=== PATIENT | female | born 1945 | race Caucasian/White ===

== ENCOUNTER → 2018-05-10 09:39 | Outpatient (CLI) | payer MEDICARE, OTHER, SELFPAY ==
--- NOTE | 2018-05-10 | DI.RAD.S_ITS ---
PROCEDURE: XR KNEE LT 3V INDICATIONS: OSTEOARTHRITIS TECHNIQUE: 3 views of the knee were acquired. COMPARISON: None. FINDINGS: Bones: No fractures or dislocations. No suspicious bony lesions. The marginal spurring in all 3 compartments. Marked narrowing of the medial joint compartment with mild varus angulation and lateral tibial subluxation on weightbearing images. Soft tissues: Mild joint effusion. No suspicious soft tissue calcifications. IMPRESSION: 1. Mild joint effusion and tricompartmental osteoarthritis, most marked medially. Dictated by: Jordon Sales M.D. on 05/10/2018 at 10:26 Approved by: Jordon Sales M.D. on 05/10/2018 at 10:28
== END ==
PROVIDERS: PCP Internal Medicine; Visit Provider Internal Medicine
DX: M17.12 Unilateral primary osteoarthritis, left knee (principal); M25.462 Effusion, left knee; M85.852 Other specified disorders of bone density and structure, left thigh
CPT/HCPCS: 73562; 77080

== ENCOUNTER → 2018-08-21 11:02 | Outpatient (CLI) | payer MEDICARE, OTHER, SELFPAY ==
--- NOTE | 2018-08-21 | DI.RAD.S_ITS ---
PROCEDURE: XR HIP W PEL IF DONE RT 2V INDICATIONS: Pain in right knee/osteoarthritis TECHNIQUE: AP pelvis with lateral view(s) of the right hip(s). COMPARISON: None. FINDINGS: Bones: No fractures or dislocations. Asymmetric hip joint osteoarthritis present, mild to moderate on the left and moderate on the right Pelvic ring appears intact. No suspicious bony lesions. Soft tissues: The visualized bowel gas pattern is normal. No suspicious soft tissue calcifications. IMPRESSION: Asymmetric right greater than left hip joint osteoarthritis but no trauma found. Dictated by: Catalino Person M.D. on 08/21/2018 at 12:08 Approved by: Catalino Person M.D. on 08/21/2018 at 12:09
--- NOTE | 2018-08-21 | DI.RAD.S_ITS ---
PROCEDURE: XR KNEE RT 3V INDICATIONS: Pain in right knee/osteoarthritis TECHNIQUE: 3 views of the knee were acquired. COMPARISON: [facility], CR, XR KNEE LT 3V, 05/10/2018, 9:48. FINDINGS: Bones: No fractures or dislocations. There is moderate thinning of the joints width at the medial compartment, and mild such thinning of the lateral compartment. There is mild to moderate thinning of the joint space at the medial facet of the patellofemoral joint. No suspicious bony lesions. Soft tissues: No joint effusion. No suspicious soft tissue calcifications. IMPRESSION: No trauma found. Tricompartmental degenerative osteoarthritic joint space thinning is present, most pronounced at the medial compartment of the right knee. Dictated by: Catalino Person M.D. on 08/21/2018 at 12:09 Approved by: Catalino Person M.D. on 08/21/2018 at 12:10
== END ==
PROVIDERS: Family Provider Orthopaedic Surgery; PCP Internal Medicine; Visit Provider Internal Medicine
DX: M25.561 Pain in right knee (principal); M16.0 Bilateral primary osteoarthritis of hip; M17.11 Unilateral primary osteoarthritis, right knee
CPT/HCPCS: 73502; 73562

== ENCOUNTER → 2022-08-11 11:06 | Outpatient (CLI) | payer MEDICARE, OTHER, SELFPAY ==
--- NOTE | 2022-08-11 11:08 | DI.RAD.S_ITS ---
PROCEDURE: XR CHEST 2V INDICATIONS: history of aortic aneurysm TECHNIQUE: 2 views of the chest were acquired. COMPARISON: None. FINDINGS: Surgical changes and devices: None. Lungs and pleura: Lungs are clear. No pleural effusions or pneumothorax. Mediastinum: There is ectasia versus aneurysm of the ascending thoracic aorta and the proximal most portion of the descending thoracic aorta just beyond the arch. Normal heart size. Bones and chest wall: No suspicious bony abnormalities. Soft tissues appear unremarkable. IMPRESSION: Suspected ectasias or potentially aneurysm of the ascending thoracic aorta and potentially the aortic arch as well. No prior studies are available for comparison. If there is a known diagnosis of thoracic aortic aneurysm then CT angiography of the chest (potentially to include the abdomen and pelvis) would be the next best imaging study. Dictated by: Ramon Valladares M.D. on 08/11/2022 at 15:39 Approved by: Ramon Valladares M.D. on 08/11/2022 at 15:43
--- NOTE | 2022-08-11 11:08 | DI.RAD.S_ITS ---
PROCEDURE: XR PELVIS 1-2V INDICATIONS: pelvic fracture, right SI joint pain TECHNIQUE: Single AP view(s) of the pelvis acquired. COMPARISON: [facility], CR, XR HIP W PEL IF DONE RT 2V, 08/21/2018, 10:46. FINDINGS: Left superior and inferior parasymphyseal pubic ramus or fractures are redemonstrated. Alignment is not significantly changed. Bones otherwise intact. Moderate right greater than left hip osteoarthritis. IMPRESSION: Left superior and inferior pubic ramus fractures are unchanged in alignment. Dictated by: Ramon Valladares M.D. on 08/11/2022 at 16:22 Approved by: Ramon Valladares M.D. on 08/11/2022 at 16:24
[2022-08-11 13:36] LABS: Hemoglobin 12.4 g/dL (12.0-16.0); Mean Corpuscular HGB Conc 34.4 % (30-36); Mean Corpuscular Hemoglobin 30.8 PG (26-34); Mean Corpuscular Volume 89.3 fL (80-100); Platelet Count 323 X10^3/uL (150-400); Red Blood Cell Count 4.03 X10^6/uL (4.0-5.2); Red Cell Distribution Width 12.7 % (11.6-14.8); White Blood Cell Count 7.1 X10^3/uL (4.5-11.0)
[2022-08-11 13:48] LABS: Alanine Aminotransferase 12 IU/L (<35); Albumin Globulin Ratio 1.3 (1.0-2.8); Alkaline Phosphatase 98 U/L (38-126); Aspartate Aminotransferase 21 IU/L (14-36); BUN Creatinine Ratio 29.7 (6-22); Bilirubin Total 0.2 mg/dL (0.2-1.3); Blood Urea Nitrogen 19 mg/dL (7-17); Calcium 9.4 mg/dL (8.4-10.2); Carbon Dioxide 25 mmol/L (22-32); Chloride 99 mmol/L (98-107); Cholesterol 262 mg/dL (140-199); Estimated Glomerular Filt Rate > 60 mL/min (>60); Glucose 86 mg/dL (80-110); HDL Cholesterol 62 mg/dL (40-60); HEMOLYSIS < 15 (0-50); LDL Cholesterol Calculated 169 mg/dL (<100); Potassium 4.7 mmol/L (3.4-5.1); Sodium 134 mmol/L (137-145); Triglycerides 155 mg/dL (35-150)
[2022-08-11 14:18] LABS: TSH w/ Reflex to FT4 0.92 uIU/mL (0.47-4.68)
[2022-08-11 17:24] LABS: Vitamin D 25 Hydroxy (D3) 80.3 ng/mL (30.0-100.0)
== END ==
PROVIDERS: Family Provider Orthopaedic Surgery; PCP Internal Medicine; Referring Provider Internal Medicine; Visit Provider Internal Medicine
DX: M16.0 Bilateral primary osteoarthritis of hip (principal); E78.2 Mixed hyperlipidemia; M85.80 Other specified disorders of bone density and structure, unspecified site; I71.9 Aortic aneurysm of unspecified site, without rupture; Z87.81 Personal history of (healed) traumatic fracture
CPT/HCPCS: 36415; 71046; 72170; 80053; 80061; 82306; 84443; 85027

== ENCOUNTER → 2022-08-31 12:51 | Outpatient (CLI) | payer MEDICARE, OTHER, SELFPAY | PROVIDERS: Family Provider Orthopaedic Surgery; PCP Internal Medicine; Referring Provider Internal Medicine; Visit Provider Internal Medicine | DX: Z78.0 Asymptomatic menopausal state (principal); Z13.820 Encounter for screening for osteoporosis; M81.0 Age-related osteoporosis without current pathological fracture; Z90.710 Acquired absence of both cervix and uterus | CPT/HCPCS: 77080 ==

== ENCOUNTER → 2022-09-06 12:29 | Outpatient (CLI) | payer MEDICARE, OTHER, SELFPAY ==
--- NOTE | 2022-09-06 12:30 | DI.CT.S_ITS ---
PROCEDURE: CT ANGIO CHEST INDICATIONS: aortic aneurysm TECHNIQUE: After the administration of intravenous contrast, 2.5 mm thick sections acquired from the lung apices to the posterior lung bases. Maximum intensity projection (MIP) oblique sagittal reformats were then acquired parallel to the aortic arch. For radiation dose reduction, the following was used: automated exposure control. COMPARISON: None. FINDINGS: Image quality: Excellent. Aorta: Aorta and great vessels are normal in size. No aneurysmal aortic dilatation. No mural hematomas. No wall thickening or periaortic fat stranding. Mediastinum: No hematomas. Heart size is normal. No pericardial effusion. No mediastinal or hilar adenopathy by size criteria. Central pulmonary arteries are normal in size. Esophagus is normal in caliber. No hiatal hernia. Lungs and pleura: No acute airspace opacities. No pleural effusions or pneumothorax. Central and peripheral airways are patent and normal in caliber. Bones and chest wall: No axillary adenopathy by size criteria. The right thyroid lobe has a heterogeneous appearance. The left thyroid lobe is unremarkable. No suspicious bony lesions. No vertebral body compression fractures. Moderate degenerative changes are present throughout the thoracic spine. Abdomen: Visualized upper abdominal solid organs and bowel loops appear normal. IMPRESSION: 1. No aortic aneurysmal dilatation, mural hematomas, or wall thickening. Dictated by: Cate Gibson M.D. on 09/06/2022 at 15:23 Approved by: Cate Gibson M.D. on 09/06/2022 at 15:39
== END ==
PROVIDERS: Family Provider Orthopaedic Surgery; PCP Internal Medicine; Referring Provider Internal Medicine; Visit Provider Internal Medicine
DX: I71.9 Aortic aneurysm of unspecified site, without rupture (principal)
CPT/HCPCS: 71275; Q9967

== ENCOUNTER → 2023-06-06 12:52 | Outpatient (CLI) | payer MEDICARE, OTHER, SELFPAY ==
--- NOTE | 2023-06-06 12:53 | DI.RAD.S_ITS ---
PROCEDURE: XR HIP W PEL IF DONE RT 2V INDICATIONS: right hip pain TECHNIQUE: AP pelvis with lateral view(s) of the left hip(s). COMPARISON: [facility], CR, XR PELVIS 1-2V, 08/11/2022, 11:13. [facility], CR, XR HIP W PEL IF DONE RT 2V, 08/21/2018, 10:46. FINDINGS: Remote healed fracture of the left superior and inferior ramus. Bones: No acute fractures or dislocations. Degenerative changes of the right hip consistent with osteoarthritis. Pelvic ring appears intact. No suspicious bony lesions. Soft tissues: The visualized bowel gas pattern is normal. No suspicious soft tissue calcifications. IMPRESSION: 1. Degenerative changes of the right hip consistent with osteoarthritis. 2. Healed fractures of the left superior and inferior ramus. Dictated by: Stanley Tuttle M.D. on 06/06/2023 at 13:37 Approved by: Stanley Tuttle M.D. on 06/06/2023 at 13:40
== END ==
PROVIDERS: Family Provider Orthopaedic Surgery; PCP Internal Medicine; Referring Provider Internal Medicine; Visit Provider Internal Medicine
DX: M15.9 Polyosteoarthritis, unspecified (principal)
CPT/HCPCS: 73502

== ENCOUNTER → 2023-10-04 11:11 | Outpatient (CLI) | payer MEDICARE, OTHER, SELFPAY ==
--- NOTE | 2023-10-04 11:14 | DI.RAD.S_ITS ---
PROCEDURE: XR CERVICAL SPINE 4V OR 5V INDICATIONS: neck pain TECHNIQUE: 5 views of the cervical spine acquired. COMPARISON: None. FINDINGS: Bones: No fractures or dislocations to the T1 level. Moderate to severe degenerative changes in the cervical spine most pronounced at C4-C5 and C5-C6. Uncovertebral joint hypertrophy. Mild bony neural foraminal narrowing at right C3-C4 and C5-C6 and left C5-C6. Soft tissues: No prevertebral soft tissue swelling. IMPRESSION: Moderate to severe degenerative changes in the cervical spine most pronounced at C4-C5 and C5-C6. Bilateral bony neural foraminal narrowing. If clinically indicated MRI could be considered for further evaluation. Dictated by: Sawyer Mcbride M.D. on 10/04/2023 at 12:51 Approved by: Sawyer Mcbride M.D. on 10/04/2023 at 12:54
[2023-10-04 13:05] LABS: Hematocrit 38.3 % (36-46); Mean Corpuscular Hemoglobin 30.4 PG (26-34); Mean Corpuscular Volume 89.4 fL (80-100); Platelet Count 275 X10^3/uL (150-400); Red Blood Cell Count 4.28 X10^6/uL (4.0-5.2); Red Cell Distribution Width 12.6 % (11.6-14.8); White Blood Cell Count 5.1 X10^3/uL (4.5-11.0)
[2023-10-04 13:35] LABS: Alanine Aminotransferase 16 IU/L (<35); Albumin 4.1 g/dL (3.5-5.0); Albumin Globulin Ratio 1.5 (1.0-2.8); Alkaline Phosphatase 53 U/L (38-126); Aspartate Aminotransferase 21 IU/L (14-36); BUN Creatinine Ratio 27.8 (6-22); Bilirubin Total 0.4 mg/dL (0.2-1.3); Blood Urea Nitrogen 20 mg/dL (7-17); Calcium 10.1 mg/dL (8.4-10.2); Carbon Dioxide 25 mmol/L (22-32); Chloride 101 mmol/L (98-107); Cholesterol 275 mg/dL (140-199); Estimated Glomerular Filt Rate > 60 mL/min (>60); Globulin 2.7 g/dL (1.7-4.1); Glucose 95 mg/dL (80-110); HDL Cholesterol 60 mg/dL (40-60); HEMOLYSIS < 15 (0-50); LDL Cholesterol Calculated 195 mg/dL (<100); Potassium 4.6 mmol/L (3.4-5.1); Sodium 134 mmol/L (137-145); Total Protein 6.8 g/dL (6.3-8.2); Triglycerides 100 mg/dL (35-150)
[2023-10-04 14:00] LABS: TSH w/ Reflex to FT4 0.89 uIU/mL (0.47-4.68)
== END ==
PROVIDERS: Family Provider Orthopaedic Surgery; PCP Internal Medicine; Referring Provider Internal Medicine; Visit Provider Internal Medicine
DX: M47.812 Spondylosis without myelopathy or radiculopathy, cervical region (principal); M48.02 Spinal stenosis, cervical region; E78.2 Mixed hyperlipidemia; M81.0 Age-related osteoporosis without current pathological fracture
CPT/HCPCS: 36415; 72050; 80053; 80061; 84443; 85027

== ENCOUNTER → 2024-04-05 11:14 | Outpatient (CLI) | payer MEDICARE, OTHER, SELFPAY ==
--- NOTE | 2024-04-05 11:15 | DI.RAD.S_ITS ---
PROCEDURE: XR LUMBAR SPINE 2-3V INDICATIONS: increased in my low back/ SI area TECHNIQUE: 3 views of the lumbar spine were acquired. COMPARISON: None. FINDINGS: Bones: 5 [id number] vertebrae are present. There is 7 mm anterolisthesis of L4 on L5. Mild S shaped scoliosis of lower thoracic and lumbar spine is seen. Degenerative endplate changes are noted throughout lower thoracic and lumbar spine. No vertebral body compression fractures. No suspicious bony lesions. Soft tissues: Overlying bowel gas pattern is normal. No suspicious soft tissue calcifications. IMPRESSION: Mild scoliosis of thoracolumbar spine and 7 mm anterolisthesis of L4 on L5. No acute compression fracture. Moderate degenerative disc disease throughout lumbar spine. Dictated by: Chapincito Weinberg M.D. on 04/05/2024 at 13:01 Approved by: Chapincito Weinberg M.D. on 04/05/2024 at 13:02
--- NOTE | 2024-04-05 11:15 | DI.RAD.S_ITS ---
PROCEDURE: XR PELVIS 1-2V INDICATIONS: increased in my low back/ SI area TECHNIQUE: 1 view(s) of the pelvis acquired. COMPARISON: [facility], CR, XR PELVIS 1-2V, 08/11/2022, 11:13. FINDINGS: Bones: No fractures or dislocations. Moderate to severe right hip joint osteoarthritic changes are seen. [id number] left hip joint osteoarthritic changes also seen. Degenerative disc disease in visualized lower lumbar spine is noted. No suspicious bony lesions. Soft tissues: Visualized bowel gas pattern is normal. No suspicious soft tissue calcifications. IMPRESSION: No acute fracture or dislocation. Moderate to severe right hip joint osteoarthritis and [id number] left hip joint osteoarthritis. No evidence of avascular necrosis. Degenerative disc disease in lower lumbar spine. Dictated by: Chapincito Weinberg M.D. on 04/05/2024 at 12:59 Approved by: Chapincito Weinberg M.D. on 04/05/2024 at 13:01
== END ==
LOC: RAD 11:15
PROVIDERS: Family Provider Orthopaedic Surgery; PCP Internal Medicine; Referring Provider Internal Medicine; Visit Provider Internal Medicine
DX: M51.36 Other intervertebral disc degeneration, lumbar region (principal); M16.0 Bilateral primary osteoarthritis of hip; M53.3 Sacrococcygeal disorders, not elsewhere classified; M41.9 Scoliosis, unspecified; M54.50 Low back pain, unspecified; G89.29 Other chronic pain
CPT/HCPCS: 72100; 72170

== ENCOUNTER → 2024-08-14 10:11 | Outpatient (CLI) | payer MEDICARE, OTHER, SELFPAY ==
--- NOTE | 2024-08-14 10:12 | DI.RAD.S_ITS ---
PROCEDURE: XR DEXA AXIAL SKELETON INDICATIONS: osteoporosis COMPARISON: [facility], CR, XR DEXA AXIAL SKELETON, 08/31/2022, 13:08. FINDINGS: Lumbar Spine: Bone mineral density 0.894 g/cm2, T score -1.4, compared to -1.6. Left Hip: Bone mineral density 0.661 g/cm2, T score -2.3, unchanged. Left Femoral Neck: Bone mineral density 0.547 g/cm2, T score -2.7, compared to -2.6. Right Hip: Bone mineral density 0.690 g/cm2, T score -2.1, compared to -2.0. Right Femoral Neck: Bone mineral density 0.687 g/cm2, T score -1.5, compared to -1.9t Fracture Risk Calculation (when applicable): 10-year fracture risk of a major osteoporotic fracture 18% and of a hip fracture 3.5%. (T score greater or equal to -1.0 to: NORMAL) (T score from -1.1 to -2.4: OSTEOPENIA) (T score less than or equal to -2.5: OSTEOPOROSIS) IMPRESSION: Osteoporosis in the left femoral neck minimally progressive. Prominent osteopenia is also present in the left hip stable. Follow-up guidelines as follows: Osteoporosis: Consider a repeat DEXA and Vertebral Fracture Assessment (VFA) exam in 2 years or sooner if medically necessary, to reassess this patient's status. Osteopenia: Consider a repeat DEXA in 2-3 years to reassess this patient's status, or if there is a new clinical indication. Normal: Consider a repeat DEXA in 5 years or sooner, or if there is a new clinical indication. All treatment decisions require clinical judgment and consideration of individual patient factors, including patient preferences, comorbidities, previous drug use, risk factors not captured in the FRAX model (e.g., frailty, falls, vitamin D deficiency, increased bone turnover, interval significant decline in bone density ) and possible under- or over-estimation of fracture risk by FRAX. In addition, the NOF Guide recommends that FDA-approved medical therapies be considered in postmenopausal women and men age >= 50 years with a: * Hip or vertebral (clinical or morphometric) fracture * T-score of <=-2.5 at the spine or hip * Ten-year fracture probability by FRAX of >= 3% for hip fracture or >=20% for major osteoporotic fracture. People with diagnosed cases of osteoporosis or at high risk for fracture should have regular bone mineral density tests. For patients eligible for Medicare, routine testing is allowed once every 2 years. The testing frequency can be increased to one year for patients who have rapidly progressing disease, those who are receiving or discontinuing medical therapy to restore bone mass, or have additional risk factors. Dictated by: Christina Johnson M.D. on 08/14/2024 at 14:24 Approved by: Christina Johnson M.D. on 08/14/2024 at 14:40
== END ==
PROVIDERS: Family Provider Orthopaedic Surgery; PCP Internal Medicine; Referring Provider Internal Medicine; Visit Provider Internal Medicine
DX: M81.0 Age-related osteoporosis without current pathological fracture (principal)
CPT/HCPCS: 77080

== ENCOUNTER → 2025-02-26 09:29 | Outpatient (CLI) | payer MEDICARE, OTHER, SELFPAY ==
[2025-02-26 10:14] LABS: Hematocrit 37.4 % (36-46); Hemoglobin 12.6 g/dL (12.0-16.0); Mean Corpuscular HGB Conc 33.6 % (30-36); Mean Corpuscular Hemoglobin 30.8 PG (26-34); Mean Corpuscular Volume 91.6 fL (80-100); Platelet Count 257 X10^3/uL (150-400); Red Blood Cell Count 4.08 X10^6/uL (4.0-5.2); Red Cell Distribution Width 13.1 % (11.6-14.8); White Blood Cell Count 3.6 X10^3/uL (4.5-11.0)
[2025-02-26 10:42] LABS: Alanine Aminotransferase 16 IU/L (<35); Albumin 4.1 g/dL (3.5-5.0); Albumin Globulin Ratio 1.6 (1.0-2.8); Alkaline Phosphatase 46 U/L (38-126); Aspartate Aminotransferase 22 IU/L (14-36); BUN Creatinine Ratio 19.7 (6-22); Bilirubin Total 0.5 mg/dL (0.2-1.3); Blood Urea Nitrogen 14 mg/dL (7-17); Calcium 9.7 mg/dL (8.4-10.2); Carbon Dioxide 26 mmol/L (22-32); Chloride 103 mmol/L (98-107); Cholesterol 276 mg/dL (140-199); Estimated Glomerular Filt Rate > 60 mL/min (>60); Globulin 2.5 g/dL (1.7-4.1); Glucose 83 mg/dL (80-110); HDL Cholesterol 65 mg/dL (40-60); HEMOLYSIS < 15 (0-50); LDL Cholesterol Calculated 199 mg/dL (<100); Sodium 135 mmol/L (137-145); Total Protein 6.6 g/dL (6.3-8.2); Triglycerides 60 mg/dL (35-150)
[2025-02-26 11:11] LABS: TSH w/ Reflex to FT4 0.52 uIU/mL (0.47-4.68)
[2025-02-26 11:13] LABS: Vitamin D 25 Hydroxy (D3) 83.5 ng/mL (30.0-100.0)
[2025-02-26 11:30] LABS: Vitamin B12 > 1000 pg/mL (239-931)
== END ==
PROVIDERS: Family Provider Orthopaedic Surgery; PCP Internal Medicine; Referring Provider Internal Medicine; Visit Provider Internal Medicine
DX: E56.9 Vitamin deficiency, unspecified (principal); E78.2 Mixed hyperlipidemia; R53.83 Other fatigue
CPT/HCPCS: 36415; 80053; 80061; 82306; 82607; 84443; 85027

== ENCOUNTER → 2025-08-20 13:27 | Outpatient (CLI) | payer MEDICARE, OTHER, SELFPAY ==
[2025-08-20 14:36] LABS: Add Manual Diff / Slide Review NO; Hematocrit 36.8 % (36-46); Hemoglobin 12.4 g/dL (12.0-16.0); Lymphocytes Absolute Auto 1500 /uL (1100-4500); Mean Corpuscular HGB Conc 33.8 % (30-36); Mean Corpuscular Hemoglobin 30.7 PG (26-34); Mean Corpuscular Volume 90.9 fL (80-100); Platelet Count 246 X10^3/uL (150-400)
[2025-08-20 15:01] LABS: Alanine Aminotransferase 14 IU/L (<35); Albumin 4.0 g/dL (3.5-5.0); Albumin Globulin Ratio 1.4 (1.0-2.8); Alkaline Phosphatase 54 U/L (38-126); Blood Urea Nitrogen 20 mg/dL (7-17); Calcium 9.4 mg/dL (8.4-10.2); Carbon Dioxide 28 mmol/L (22-32); Chloride 103 mmol/L (98-107); Estimated Glomerular Filt Rate > 60 mL/min (>60); Globulin 2.8 g/dL (1.7-4.1); Glucose 91 mg/dL (70-99); HEMOLYSIS < 15 (0-50); Potassium 5.2 mmol/L (3.4-5.1); Sodium 134 mmol/L (137-145); Total Protein 6.8 g/dL (6.3-8.2)
== END ==
PROVIDERS: Family Provider Orthopaedic Surgery; PCP Internal Medicine; Referring Provider Internal Medicine
DX: E78.2 Mixed hyperlipidemia (principal); R53.83 Other fatigue
CPT/HCPCS: 36415; 80053; 85025